=== PATIENT | female | born 2000 | race Caucasian/White ===

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

== ENCOUNTER 2022-03-30 13:10 | Emergency (ER) | payer OTHER ==
[2022-03-30 13:17] VITALS: BP 122/73
[2022-03-30] MEDS ORDERED: PRILOSEC2.5 MG/Pac PO (13:24)
[2022-03-30] MEDS ORDERED: SPIRONOLACTONE50 M1 PO (13:24)
[2022-03-30] MEDS ORDERED: ESTARYLLA 35 MC1 TAB PO (13:24)
[2022-03-30] MEDS ORDERED: BUSPIRONE HYDRO10 MG PO (13:24)
[2022-03-30] MEDS ORDERED: VENLAFAXINE H37.5 M4 PO (13:24)
[2022-03-30] MEDS ORDERED: VENLAFAXINE HY150 MG PO (13:24)
[2022-03-30] MEDS ORDERED: MINOCYCLINE HY100 M1 PO (13:25)
== END 2022-03-30 16:04 | disposition home or self-care (01) ==
LOC: ED 13:10
DX: H57.02 Anisocoria (principal); Z28.310 Unvaccinated for COVID-19
CPT/HCPCS: Q9967